=== PATIENT | female | born 1930 | race Caucasian/White ===

== ENCOUNTER → 2017-01-29 | Outpatient (REF) ==
[2017-01-29 15:22] LABS: C-REACTIVE PROTEIN < 0.5 mg/dL (0.0-0.9)
[2017-01-29 15:48] LABS: THYROID STIMULATING HORMONE 0.997 uIU/mL (0.465-4.680)
== END ==
LOC: ZLAB.WCH 14:59
PROVIDERS: Nurse Practitioner Family
DX: Z01.89 Encounter for other specified special examinations (principal)

== ENCOUNTER → 2018-02-10 | Outpatient (REF) | LOC: ZLAB.WCH 16:06 | DX: Z01.89 Encounter for other specified special examinations (principal) ==

== ENCOUNTER → 2018-12-12 | Outpatient (REF) | LOC: ZLAB.WCH 16:46 | DX: Z01.89 Encounter for other specified special examinations (principal) ==

== ENCOUNTER → 2020-12-22 | Outpatient (CLI) | payer MEDICARE, OTHER | LOC: ZLAB.WCH 17:46 → ZLAB.WCHCL 17:46 → ZCOL.LAB 17:46 | DX: Z01.89 Encounter for other specified special examinations (principal) ==